=== PATIENT | female | born 1965 | race Caucasian/White ===

== ENCOUNTER → 2016-05-23 | Outpatient (CLI) | payer OTHER ==
[~2016-05-23] MED LIST: ELMIRON100 MG PO; MIRALAX17 GM PO; NAPROXEN250 MG PO; NEURONTIN 400400 MG PO; NORCO 10-325 T1 EACH PO; PREVACID30 MG PO
== END ==
LOC: US 05-15 11:30
DX: N20.0 Calculus of kidney (principal); R31.9 Hematuria, unspecified

== ENCOUNTER → 2016-07-13 | Outpatient (CLI) | payer OTHER | LOC: HEART 5 06-22 11:00 | DX: R07.9 Chest pain, unspecified (principal) | CPT/HCPCS: 93306 ==